=== PATIENT | male | born 1985 | race Caucasian/White ===

== ENCOUNTER 2021-11-18 09:25 | Emergency (ER) | payer OTHER ==
[~2021-11-18] VITALS: Ht 180.3 cm; Wt 100.0 kg
[2021-11-18 11:35] VITALS: BP 121/69
== END 2021-11-18 11:49 | disposition home or self-care (01) ==
LOC: EMS 09:29
DX: R10.9 Unspecified abdominal pain (principal)
CPT/HCPCS: 74176; 99284; Z7502